=== PATIENT | male | born 1990 | race African-American/Black ===

== ENCOUNTER 2017-03-10 21:14 | Emergency (ER) | payer OTHER ==
[~2017-03-10] VITALS: Ht 177.8 cm; Wt 59.0 kg
[2017-03-10 21:44] VITALS: BP 141/63
== END 2017-03-10 23:13 | disposition home or self-care (01) ==
LOC: EMS 21:21
DX: R07.89 Other chest pain (principal)
CPT/HCPCS: 93005; 99284